=== PATIENT | male | born 1975 | race Hispanic/Latino ===

== ENCOUNTER 2021-12-04 14:44 | Emergency (ER) | payer OTHER ==
[~2021-12-04] VITALS: Ht 180.3 cm; Wt 104.3 kg
[2021-12-04 15:04] LABS: BASOPHILS % (AUTO) 0.5 % (0.0-5.0); EOSINOPHILS % (AUTO) 2.3 % (0.0-8.0); HEMATOCRIT 43.1 % (42-54); LYMPHOCYTES % (AUTO) 24.3 % (21.0-51.0); MEAN CORPUSCULAR HEMOGLOBIN 30.6 pg (27.0-33.0); MEAN CORPUSCULAR HGB CONC 33.2 g/dL (32.0-36.0); MEAN CORPUSCULAR VOLUME 92.1 fL (79-99); MONOCYTES % (AUTO) 7.1 % (3.0-13.0); NEUTROPHILS % (AUTO) 65.1 % (40.0-77.0); PLATELET COUNT (AUTO) 324 K/uL (130-400); RED BLOOD CELL COUNT(AUTO) 4.68 MIL/uL (4.50-6.20); RED CELL DISTRIBUTION WIDTH 12.7 % (11.0-15.5)
[2021-12-04 15:14] LABS: CARBON DIOXIDE 30 mmol/L (21-32); CHLORIDE 102 mmol/L (101-111); CREATININE 0.9 mg/dL (0.5-1.5); GLOMERULAR FILTR. RATE CALC 97 mL/min (>60); GLUCOSE,RANDOM 128 mg/dL (70-105); POTASSIUM 3.6 mmol/L (3.5-5.1); SODIUM SERUM 140 mmol/L (136-145); UREA NITROGEN, BLOOD 15 mg/dL (7-18)
[2021-12-04 15:24] LABS: ALANINE AMINOTRANSFERASE 58 U/L (12-78); ALBUMIN 4.2 g/dL (3.5-5.0); ASPARTATE AMINOTRANSFERASE 20 U/L (10-37); BILIRUBIN,TOTAL 0.3 mg/dL (0.2-1.0); CREATINE KINASE, TOTAL 310 U/L (21-232); MYOGLOBIN 119 ng/mL (10-92); TOTAL PROTEIN, SERUM 8.3 g/dL (6.0-8.3)
[2021-12-04] MEDS ORDERED: LORAZEPAM 1 MG TABLET PO ONE (15:30)
[2021-12-04] MEDS ORDERED: NIRM1TAB PO (16:18)
[2021-12-04] MEDS ORDERED: D-ME1POW16 PO (16:18)
[2021-12-04 16:33] VITALS: BP 129/89
== END 2021-12-04 16:44 | disposition home or self-care (01) ==
LOC: EDH 14:44
DX: U07.1 COVID-19 (principal); J06.9 Acute upper respiratory infection, unspecified
CPT/HCPCS: 36415; 71045; 80053; 82550; 83874; 84484; 85025; 87635; 87804 ×2; 99284; C9803

== ENCOUNTER 2021-12-09 00:15 | Emergency (ER) | payer OTHER ==
[~2021-12-09] VITALS: Ht 180.3 cm; Wt 104.3 kg
[~2021-12-09 00:15] MED LIST: D-ME1POW16 PO; NIRM1TAB PO
[2021-12-09 01:06] LABS: BASOPHILS % (AUTO) 0.4 % (0.0-5.0); EOSINOPHILS % (AUTO) 2.9 % (0.0-8.0); HEMATOCRIT 41.7 % (42-54); LYMPHOCYTES % (AUTO) 41.5 % (21.0-51.0); MEAN CORPUSCULAR HEMOGLOBIN 30.8 pg (27.0-33.0); MEAN CORPUSCULAR HGB CONC 33.3 g/dL (32.0-36.0); MEAN CORPUSCULAR VOLUME 92.3 fL (79-99); MONOCYTES % (AUTO) 6.3 % (3.0-13.0); NEUTROPHILS % (AUTO) 48.3 % (40.0-77.0); PLATELET COUNT (AUTO) 312 K/uL (130-400); RED BLOOD CELL COUNT(AUTO) 4.52 MIL/uL (4.50-6.20); RED CELL DISTRIBUTION WIDTH 12.8 % (11.0-15.5); WHITE BLOOD COUNT (AUTO) 10.4 K/uL (4.8-10.8)
[2021-12-09 01:22] LABS: CREATININE 1.1 mg/dL (0.5-1.5); POTASSIUM 3.6 mmol/L (3.5-5.1)
[2021-12-09 01:27] LABS: ALBUMIN 3.6 g/dL (3.5-5.0); BILIRUBIN,TOTAL 0.4 mg/dL (0.2-1.0); TOTAL PROTEIN, SERUM 7.3 g/dL (6.0-8.3)
[2021-12-09 01:30] LABS: B-TYPE NATRIURETIC PEPTIDE < 5 pg/mL (0-100)
[2021-12-09 02:03] VITALS: BP 120/81
== END 2021-12-09 02:11 | disposition home or self-care (01) ==
LOC: EDH 00:15
DX: U07.1 COVID-19 (principal); R06.00 Dyspnea, unspecified
CPT/HCPCS: 36415; 71045; 80053; 83880; 84484; 85025; 85378; 93005

== ENCOUNTER 2021-12-12 03:25 | Emergency (ER) | payer OTHER ==
[~2021-12-12] VITALS: Ht 180.3 cm; Wt 105.2 kg
[2021-12-12] MEDS ORDERED: SOLU-MEDROL 125MG VIAL IM ONE (05:00)
[2021-12-12] MEDS ORDERED: IPRA4AER IH (05:15)
[2021-12-12] MEDS ORDERED: PRED20TA3 PO (05:15)
[2021-12-12 05:21] VITALS: BP 124/75
== END 2021-12-12 05:27 | disposition home or self-care (01) ==
LOC: EDH 03:25
DX: U07.1 COVID-19 (principal); R06.00 Dyspnea, unspecified; Z79.899 Other long term (current) drug therapy
CPT/HCPCS: 71045; 96372; 99283; J2930

== ENCOUNTER → 2023-08-21 | Outpatient (CLI) | payer OTHER ==
[~2023-08-21] MED LIST changes: +IPRA4AER IH; +PRED20TA3 PO
== END | disposition home or self-care (01) ==
LOC: RESP 10:02
PROVIDERS: ATTEND Chiropractor
DX: J45.998 Other asthma (principal)
CPT/HCPCS: 94060